=== PATIENT | female | born 1985 | race Caucasian/White ===

== ENCOUNTER 2018-05-12 08:25 | Outpatient (CLI) | payer OTHER ==
[~2018-05-12] VITALS: Ht 167.6 cm; Wt 64.9 kg
[2018-05-12 08:47] VITALS: BP 115/72
[2018-05-12] MEDS ORDERED: VITAMIN D1000 UNI1 ORAL (08:48)
[2018-05-12] MEDS ORDERED: Isovue-M 300 15ml INJ SCH (09:15)
[2018-05-12] MEDS ORDERED: Depo-Medrol 80mg Vial IARTIC SCH (09:15)
[2018-05-12] MEDS ORDERED: Lidocaine 1% MPF 10mg/ml 5ml IM SCH (09:15)
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
--- NOTE | 2018-05-12 09:22 | Pre-Procedure Note/Attestation ---
Pre-Procedure Note/Attestation Complete Prior to Procedure Planned Procedure: bilateral Procedure Narrative: L5-S1 intra-articular facet injections Indications for Procedure Pre-Operative Diagnosis: Lumbosacral spondylosis Attestation I attest that I discussed the nature of the procedure; its benefits; risks and complications; and alternatives (and the risks and benefits of such alternatives ), prior to the procedure, with the patient (or the patient's legal public relations representative). I attest that, if there was a reasonable possibility of needing a blood transfusion, the patient (or the patient's legal public relations representative) was given the [facility] standardized written summary, pursuant to the [place] Blood Safety Act ([place] Health and Safety Code # 1645, as amended). I attest that I re-evaluated the patient just prior to the surgery and that there has been no change in the patient's H&P, except as documented below: Augusta Figueroa MD May 12, 2018 09:22
[2018-05-12 09:55] VITALS: BP 123/77
--- NOTE | 2018-05-12 09:58 | Brief Operative Note ---
Immediate Post Operative Note Operative Note Chief Complaint: Lower back pain Pre-op Diagnosis: Lumbosacral spondylosis Procedure: Bilateral L5-S1 IAF Post-op Diagnosis: lumbosacral spondylosis Post-op Diagnosis: same as pre-op Findings: consistent w/pre-op dx studies Surgeon: Augusta Figueroa Field Research Associate: none Additional Surgeons: none Anesthesiologist: none Anesthesia: local Specimen: none Complications: none Condition: stable Fluids: none Estimated Blood Loss: none Drains: none Packing: none Tourniquet time: 0 Implant(s) used?: Augusta Serrato MD May 12, 2018 09:58
--- NOTE | 2018-05-12 09:59 | Operative Note - PDOC ---
Operative Note Operative Note Date of Operation/Procedure: May 12, 2018 Chief Complaint: Lower back pain Pre-op Diagnosis: Lumbosacral spondylosis Procedure: Bilateral L5-S1 IAF Post-op Diagnosis: lumbosacral spondylosis Post-op Diagnosis: same as pre-op Operative Findings: consistent w/pre-op dx studies Surgeon: Augusta Figueroa Recruiting Assistant: none Additional Surgeons: none Anesthesiologist: none Anesthesia: local Specimen: none Complications: none Condition: stable Fluids: none Estimated Blood Loss: none Drains: none Packing: none Tourniquet time: 0 Implant(s) used?: No Indications for Procedure Date of loss 04/11/17. Lumbosacral spondylosis Description of Procedure The patient was seen and identified in the preoperative area. Risks, benefits, complications, and alternatives were discussed with the patient. The patient agreed to proceed with the procedure and signed the consent. The patient was placed in the prone position, and lumbosacral area was prepped with Hibiclens and draped in the usual sterile fashion. Critical pause was taken. Using right oblique fluoroscopy, the right L5-S1 facet joint was identified, and skin was anesthetized with 1% lidocaine. A 25-gauge 3.5-inch spinal needle was guided intra articularly by fluoroscopy to the L5-S1 joint. Tip position was confirmed on lateral fluoroscopy. After negative aspiration of CSF and blood with no paresthesias, 0.5mL of Isoview M300 was injected illustrating excellent arthrogram. Again after negative aspiration of CSF and blood with no paresthesias, 1 mL of a block solution was injected. Block solution contained 80 mg of Depo-Medrol and 1 mL of 1% preservative-free lidocaine. The fluoroscopic camera was then placed in the left oblique position and the same procedure was repeated on the left side. The needles were removed, skin was cleansed, and bandages were applied. The patient tolerated the procedure well without complications, and was discharged from recovery room after meeting discharge. Follow up: Post procedure VAS was 0/10. Facet loading was negative. The patient will follow up in two weeks. A pain diary was given to the patient. Augusta Figueroa MD May 12, 2018 09:59
--- NOTE | 2018-05-12 10:03 | Discharge Summary ---
Discharge Summary Hospital Course Date of Admission 05/12/2018 Date of Discharge 05/12/2018 Admitting Diagnosis Lumbosacral spondylosis Reason for Hospitalization: short stay HPI Michelle Iniguez is a 32 year old female who was admitted on for Spondylosis W/O Myelopahty Or Radiculopathy Consultations none Procedures Bilateral L5-S1 IAF Hospital Course short stay Discharge Discharge Disposition Patient was discharged to Discharge Instructions Discharge Instructions Follow up with: Dr. Augusta Figueroa Diet: regular Activity: resume normal activities For Surgical Patients Dressing Care: keep dry and clean May shower: Yes Contact your physician for: bleeding, pain, tenderness, redness, swelling, yellowish discharge in the op. site Augusta Figueroa MD May 12, 2018 10:03
--- NOTE | 2018-05-12 14:28 | Diagnostic Imaging Report ---
INDICATION: Pain, intraoperative TECHNIQUE: Intraoperative imaging during bilateral lumbar facet injection Fluoroscopy time: Of 22 seconds Total dose: [id number] mGym2 Total number of images: 2 COMPARISON: None FINDINGS: Intraprocedural images demonstrate contrast in the region of the bilateral L5-S1 facets IMPRESSION: Intraoperative imaging, as described
== END 2018-05-12 10:10 | disposition home or self-care (01) ==
LOC: RAD 08:25
DX: M47.817 Spondylosis without myelopathy or radiculopathy, lumbosacral region (principal)
CPT/HCPCS: 62323; 81025; J1040; Q9967

== ENCOUNTER 2018-06-07 07:17 | Outpatient (CLI) | payer OTHER ==
[~2018-06-07] VITALS: Ht 167.6 cm; Wt 65.8 kg
[~2018-06-07 07:17] MED LIST: VITAMIN D1000 UNI1 ORAL
[2018-06-07] MEDS ORDERED: IBUPROFEN600 MG ORAL (08:05)
[2018-06-07 08:07] VITALS: BP 102/65
[2018-06-07] MEDS ORDERED: Depo-Medrol 80mg Vial IARTIC ONE (08:30)
[2018-06-07] MEDS ORDERED: Isovue-M 300 15ml INJ ONE (08:30)
[2018-06-07] MEDS ORDERED: Lidocaine 1% Plain 30 ml INJ ONE (08:49)
[2018-06-07 09:08] VITALS: BP 124/61
--- NOTE | 2018-06-07 09:08 | Brief Operative Note ---
Immediate Post Operative Note Operative Note Chief Complaint: lower back pain Pre-op Diagnosis: lumbosacral spondylosis Procedure: Bilateral L5-S1 intra articular facet injection Post-op Diagnosis: lumbosacral spondylosis Post-op Diagnosis: same as pre-op Findings: consistent w/pre-op dx studies Surgeon: Augusta Figueroa MD Electronic Assembler Group Leader: none Additional Surgeons: none Anesthesiologist: none Anesthesia: local Specimen: none Complications: none Condition: stable Fluids: none Estimated Blood Loss: none Drains: none Packing: none Tourniquet time: 0 Implant(s) used?: Augusta Serrato MD Jun 07, 2018 09:08
--- NOTE | 2018-06-07 09:11 | Discharge Summary ---
Discharge Summary Hospital Course Date of Admission 06/07/2018 Date of Discharge 06/07/2018 Admitting Diagnosis lumbosacral spondylosis Reason for Hospitalization: short stay for pain injection HPI Michelle Iniguez is a 33 year old female who was admitted on for Lumbosacral Spondylosis Consultations none Procedures Bilateral L5-S1 intra-articular facet injection Hospital Course short stay Discharge Condition Upon Discharge: stable Discharge Disposition Patient was discharged to home. Discharge Diagnoses: (1) Lumbosacral spondylosis Discharge Instructions Discharge Instructions Follow up with: Dr. Figueroa Diet: regular Activity: okay to shower For Surgical Patients May shower: Yes Contact your physician for: bleeding, pain, tenderness, redness, swelling, yellowish discharge in the op. site Augusta Figueroa MD Jun 07, 2018 09:11
--- NOTE | 2018-06-07 09:13 | Operative Note - PDOC ---
Operative Note Operative Note Date of Operation/Procedure: Jun 07, 2018 Chief Complaint: lower back pain Pre-op Diagnosis: lumbosacral spondylosis Procedure: Bilateral L5-S1 intra articular facet injection Post-op Diagnosis: lumbosacral spondylosis Post-op Diagnosis: same as pre-op Operative Findings: consistent w/pre-op dx studies Surgeon: Augusta Figueroa MD Training Technician: none Additional Surgeons: none Anesthesiologist: none Anesthesia: local Specimen: none Complications: none Condition: stable Fluids: none Estimated Blood Loss: none Drains: none Packing: none Tourniquet time: 0 Implant(s) used?: No Indications for Procedure The patient has a date of loss of 04/11/2017 and has failed conservative management of her pain. She has had one set of facet injections which helped lower the pain and improve her function. She is here for another injection of her lower back. Augusta Figueroa MD Jun 07, 2018 09:13
--- NOTE | 2018-06-07 09:19 | Short Stay Surgery H&P ---
History of Present Illness History of Present Illness Chief Complaint lower back pain HPI Michelle Iniguez is a 33 year old female who was admitted on for Lumbosacral Spondylosis Patient History Allergies: Coded Allergies: No Known Allergies (Unverified , 05/12/18) Medication History Scheduled Cholecalciferol (Vitamin D3)* (Vitamin D*), Unknown Dose ORAL DAILY, (Reported) Scheduled PRN Ibuprofen* (Motrin*), 600 MG ORAL Q6H PRN for For Pain, (Reported) Review of Systems Cardiovascular: Denies: no symptoms, see HPI, hypertension, CAD - stable, angina, [place], CABG, dysrhythmia, CHF, valvular disease, rheumatic heart disease, peripheral vascular disease, source of infx - skin, source of infx-indw cath, source of infx-prosthesis, other Respiratory: Denies: no symptoms, see HPI, asthma, chronic bronchitis, pneumonia, COPD, URI, tuberculosis, sleep apnea, CPAP, home 02, other Skeletal: Reports: trauma Gastrointestinal: Denies: no symptoms, see HPI, obesity, peptic ulcer disease, gastro esophageal reflux disease, hiatal hernia, jaundice, hepatitis A,B,C, other Genitourinary: Denies: no symptoms, see HPI, renal insufficiency, endstage renal disease, dialysis, UTI, urinary retention, BPH, other Neurologic: Denies: no symptoms, see HPI, seizure, stroke/TIA, neuropathy, neuro muscular disease, other Endocrine: Denies: no symptoms, see HPI, diabetes - type 1, diabetes - type 2, thyroid, post menopausal, other Hematologic: Denies: no symptoms, see HPI, anemia, coagulopathy, prior transfusion, other Physical Exam Vital Signs Last Vital Signs Date Time Temp Pulse Resp B/P (MAP) Pulse Ox O2 Delivery O2 Flow Rate FiO2 06/07/18 08:07 98.5 58 18 102/65 (77) 100 98.5 06/07/18 07:58 Room Air Skin: normal HENT: normal Heart: normal Lungs: normal Abdomen: normal Extremities: normal Genitourinary: normal Plan Plan of Care bilateral L5-S1 intra-articular facet injection under fluoroscopic guidance Preop Interventions physical therapy, rest, heat, ice, previous TPI, facet blocks Summary of Findings muscle spasms Final Diagnosis: (1) Lumbosacral spondylosis Attestation Are the patient's medical conditions optimized for surgery? Attestation Response: yes Augusta Figueroa MD Jun 07, 2018 09:19
--- NOTE | 2018-06-07 09:20 | Pre-Procedure Note/Attestation ---
Pre-Procedure Note/Attestation Complete Prior to Procedure Planned Procedure: bilateral Procedure Narrative: Bilateral L5-S1 intra-articular facet injections Indications for Procedure Pre-Operative Diagnosis: lumbosacral spondylosis Attestation I attest that I discussed the nature of the procedure; its benefits; risks and complications; and alternatives (and the risks and benefits of such alternatives ), prior to the procedure, with the patient (or the patient's legal inside sales account representative). I attest that, if there was a reasonable possibility of needing a blood transfusion, the patient (or the patient's legal inside sales account representative) was given the [facility] standardized written summary, pursuant to the [place] Blood Safety Act ([place] Health and Safety Code # 1645, as amended). I attest that I re-evaluated the patient just prior to the surgery and that there has been no change in the patient's H&P, except as documented below: Augusta Figueroa MD Jun 07, 2018 09:20
== END 2018-06-07 09:17 | disposition home or self-care (01) ==
LOC: RAD 07:17 → EDSTATUS 08:00 → RAD 09:17
DX: M47.897 Other spondylosis, lumbosacral region (principal)
CPT/HCPCS: 62323; J1040; J2001; Q9967